=== PATIENT | male | born 2000 | race Caucasian/White ===

== ENCOUNTER 2022-09-03 19:33 | Emergency (ER) | payer BC ==
[2022-09-03] MEDS ORDERED: Ondansetron ODT 4 MG TAB ONE (20:24)
[2022-09-03] MEDS ORDERED: Ketorolac Tromethamine 30 MG/ML VIAL ONE (20:24)
[2022-09-03] MEDS ORDERED: Lidocaine 1% w/Epinephrine 1:100K 20 ML VIAL ONE (21:28)
== END 2022-09-03 22:33 | disposition home or self-care (01) ==
LOC: ERS 19:33
DX: S31.31XA Laceration without foreign body of scrotum and testes, initial encounter (principal); F17.290 Nicotine dependence, other tobacco product, uncomplicated; W19.XXXA Unspecified fall, initial encounter
CPT/HCPCS: 12001; 76870; 93976; 96372; J1885; Q0162